=== PATIENT | male | born 1965 | race Caucasian/White ===

== ENCOUNTER 2016-11-16 22:54 | Emergency (ER) | payer MEDICAID ==
[~2016-11-16] VITALS: Ht 177.8 cm; Wt 85.2 kg
[~2016-11-16 22:54] MED LIST: BENA20TA2 PO
[2016-11-17 00:01] LABS: BLOOD UREA NITROGEN 15 mg/dL (7-18)
[2016-11-17] MEDS ORDERED: IBUPROFEN 200 MG TABLET ONE (00:54)
[2016-11-17] MEDS ORDERED: IBUPROFEN 200 MG TABLET PO ONE (01:00)
[2016-11-17 01:02] VITALS: BP 138/77
== END 2016-11-17 01:04 | disposition home or self-care (01) ==
LOC: ED 23:58
DX: M79.1 Myalgia (principal); I10 Essential (primary) hypertension; E78.00 Pure hypercholesterolemia, unspecified; Z87.891 Personal history of nicotine dependence
CPT/HCPCS: 36415; 80048; 81001; 82040; 82550; 85025; 87086; 99284